=== PATIENT | female | born 1995 | race Caucasian/White ===

== ENCOUNTER 2017-04-01 15:27 | Emergency (ER) | payer BC ==
[2017-04-01 16:21] LABS: HEMOGLOBIN 13.4 gm/dl (12.3-15.3); RED BLOOD COUNT 4.56 M/UL (4.00-5.10); WHITE BLOOD COUNT 11.3 K/UL (4.5-11.0)
[2017-04-01 16:42] LABS: BUN/CREATININE RATIO 15 (0-10)
== END 2017-04-01 17:30 | disposition home or self-care (01) ==
LOC: ER1 15:27
PROVIDERS: Family Medicine
DX: N83.209 Unspecified ovarian cyst, unspecified side (principal); F17.210 Nicotine dependence, cigarettes, uncomplicated; I10 Essential (primary) hypertension; Z88.0 Allergy status to penicillin; Z91.040 Latex allergy status
CPT/HCPCS: 36415; 80053; 84703; 85025; 85379; 99284

== ENCOUNTER → 2020-12-25 | Outpatient (CLI) | payer BC | LOC: HEART CORB 10:15 | DX: R07.2 Precordial pain (principal); I10 Essential (primary) hypertension | CPT/HCPCS: 93306 ==

== ENCOUNTER 2021-08-12 20:18 | Emergency (ER) | payer OTHER ==
[2021-08-12] MEDS ORDERED: NAPROSYN500 MG PO (21:30)
== END 2021-08-12 22:00 | disposition home or self-care (01) ==
LOC: ER1 20:18
DX: S93.401A Sprain of unspecified ligament of right ankle, initial encounter (principal); S40.212A Abrasion of left shoulder, initial encounter; Z88.0 Allergy status to penicillin; Z87.891 Personal history of nicotine dependence; I10 Essential (primary) hypertension; F41.9 Anxiety disorder, unspecified; W19.XXXA Unspecified fall, initial encounter
CPT/HCPCS: 29515; 73610; 99283

== ENCOUNTER → 2021-11-06 | Outpatient (CLI) | payer OTHER ==
[~2021-11-06] MED LIST: NAPROSYN500 MG PO
== END ==
LOC: EXRD 11-05 14:30
DX: N92.6 Irregular menstruation, unspecified (principal); N83.202 Unspecified ovarian cyst, left side
CPT/HCPCS: 76830; 76856

== ENCOUNTER 2022-04-26 22:46 | Emergency (ER) | payer OTHER ==
[2022-04-26 23:57] LABS: HEMOGLOBIN 12.8 gm/dl (12.3-15.3); RED BLOOD COUNT 4.09 M/UL (4.00-5.10); WHITE BLOOD COUNT 6.7 K/UL (4.5-11.0)
[2022-04-27 00:19] LABS: BUN/CREATININE RATIO 12 (0-10)
== END 2022-04-27 00:35 | disposition home or self-care (01) ==
LOC: ER1 22:46
PROVIDERS: Physician Assistant
DX: N93.9 Abnormal uterine and vaginal bleeding, unspecified (principal); I10 Essential (primary) hypertension; F17.290 Nicotine dependence, other tobacco product, uncomplicated; Z88.0 Allergy status to penicillin; Z91.040 Latex allergy status; Z91.041 Radiographic dye allergy status
CPT/HCPCS: 80053; 84702; 85025; 85461; 86850; 86900; 86901; 99284; J2405